=== PATIENT | male | born 1955 | race African-American/Black ===

== ENCOUNTER 2018-06-28 19:31 | Emergency (ER) | payer MEDICAID ==
[~2018-06-28] VITALS: Ht 175.3 cm; Wt 75.0 kg
[2018-06-28] MEDS ORDERED: IBUPROFEN 600MG TABLET PO ONE (23:30)
[2018-06-29 01:32] VITALS: BP 150/96
== END 2018-06-29 01:34 | disposition home or self-care (01) ==
LOC: ER 19:31
DX: M25.562 Pain in left knee (principal)
CPT/HCPCS: 73562; 99283

== ENCOUNTER 2018-08-15 17:39 | Emergency (ER) | payer MEDICAID ==
[~2018-08-15] VITALS: Ht 177.8 cm; Wt 75.0 kg
[2018-08-15 21:43] VITALS: BP 141/97
== END 2018-08-15 21:43 | disposition home or self-care (01) ==
LOC: ER 17:39
DX: H10.33 Unspecified acute conjunctivitis, bilateral (principal); I10 Essential (primary) hypertension; Z98.890 Other specified postprocedural states
CPT/HCPCS: 99283